=== PATIENT | male | born 1975 | race Caucasian/White ===

== ENCOUNTER 2021-05-28 09:59 | Emergency (ER) | payer SELFPAY ==
[2021-05-28 10:01] VITALS: BP 131/91; PULSE 81; RESP 18; TEMP 36.4; O2SAT 95; BMI 32.8
--- NOTE | 2021-05-28 10:18 | CT_ITS ---
EXAM DESCRIPTION: CLINICAL HISTORY: 46 years Male, painless jaundice COMPARISON: None TECHNIQUE: A CT scan of the abdomen and pelvis was performed with IV contrast contrast administration. Oral contrast was not administered. Coronal and sagittal reconstruction images were reviewed. This exam was performed according to our departmental dose-optimization program, which includes automated exposure control, adjustment of the mA and/or kV according to patient size and/or use of iterative reconstruction technique. FINDINGS: Subsegmental atelectasis is noted in both lung bases. The lung bases and heart base are otherwise normal. The liver is normal.The spleen is normal.The adrenal glands are normal.The head, body, and tail of the pancreas are normal. The right and left kidneys were examined and appear to be normal. Both ureters appear to be normal, and no obstructive uropathy is identified. The abdominal aortal is normal along its course and distribution. No paraortic lymphadenopathy is seen. No abdominal masses or lesions are seen. The CT scan of the pelvis was then reviewed. The common iliac vessels, external iliac vessels, and common femoral vessels are normal along their course and distribution No pelvis masses or lesions are seen. The appendix is normal. No pericecal inflammatory reaction is seen. Bone scanning windows of the lumbar spine and pelvis were reviewed in the coronal and sagittal planes and appear to be normal. CT/Abdomen/Pelvis W IV Cont ONLY IMPRESSION: Normal CT scan of the abdomen and pelvis. Electronically Signed: Gwyn Rosario DO at 11:41 EDT Tel , Service support ,
--- NOTE | 2021-05-28 10:19 | EX.ED.DYSGE1 ---
HPI History of Present Illness Chief Complaint: General Illness Detail of Chief Complaint: Yellow coloration today. 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 States he was doing well. He said today he noticed he was yellow in color per his family and he had dark yellow urine. Denies any nausea vomiting or diarrhea denies any abdominal pain. Denies any fever or chills. Prior similar symptoms: No Recent Illness/Hospitalization: No PFSH PFSH Allergy/AdvReac Type Severity Reaction Status Date / Time No Known Allergies Allergy Verified 05/28/21 10:00 Surgical History (Updated 05/28/21 @ 10:51 by Wily Yu) History of radical neck dissection History of tonsillectomy History of vasectomy Social History Smoking Status: Never smoker ROS ROS ED ROS Narrative Denies recent illness. Review of Systems ROS Unobtainable: Denies due to encephalopathy Constitutional Constitutional ED: Denies chills or fever(s) Eyes Eyes: Denies change in vision ENT ENT ED: Denies ear pain or sore throat Cardiovascular Cardiovascular: Denies chest pain Respiratory/Chest Respiratory/Chest: Denies cough or dyspnea Gastrointestinal Gastrointestinal: Denies abdominal pain, diarrhea, nausea or vomiting Genitourinary Genitourinary ED: Denies dysuria or hematuria Musculoskeletal Musculoskeletal: Denies myalgias Integumentary Denies rash Neurologic Neurologic: Denies headache(s) Psychiatric Psychiatric: Denies depression Endocrine Endocrinology: Denies polyuria Allergic/Immunologic Allergic/Immunologic ED: Denies urticaria EXAM Physical Exam Narrative Exam Narrative: Well-appearing middle-aged male no acute distress. Vital signs stable afebrile. He is obviously jaundiced. Both yellowish tint to his skin and scleral icterus. Otherwise exam is unremarkable. His abdomen is soft and nontender is no right upper quadrant abdominal pain. Moving all 4 extremities no edema. Lungs are clear. Heart regular rate and rhythm no murmur. Const Vital Signs: 05/28/21 10:01 05/28/21 10:51 Temperature 97.6 F L Temperature Source Temporal Pulse Rate 81 Respiratory Rate 18 Respiratory Effort Normal Respiratory Pattern Normal Blood Pressure 131/91 H Blood Pressure Mean 104 Pulse Ox 95 Oxygen Delivery Method Room Air HEENT Reports moist mucous membranes Negative for trauma or tenderness Eyes PERRL and EOMs intact bilaterally General Eye ED: Yes scleral icterus; Negative for pale conjunctiva Neck no lymphadenopathy, supple and no JVD General: Negative for tenderness Chest Wall inspection of chest normal and palpation of chest normal Resp normal respiratory effort and clear to auscultation bilaterally Cardio regular rate, regular rhythm, S1 normal heart sound, S2 normal heart sound and no murmurs GI normal to inspection, nondistended, normoactive bowel sounds, non-tender, non-distended and no masses Inspection: Negative for abdominal distention Auscultation: normoactive bowel sounds Palpation: soft; Negative for tender, guarding or rebound tenderness present Back/Spine no CVA tenderness General Back: Negative for CVA tenderness Cervical Spine: Negative for cervical spine tenderness Extremity normal to inspection General Extremety ED: Negative for edema, tenderness or other findings General Extremity: Negative for edema or other findings Neuro oriented x3 and CN's II-XII intact bilaterally Sensorium / Orientation: alert; Negative for orientation impaired, lethargic or stuporous Motor Exam: strength 5/5 throughout Psych mental status grossly normal Skin no rashes or lesions noted and no wounds General Skin Exam: jaundice MDM MDM MDM Narrative Medical decision making narrative: Middle-age male no acute distress. Vital signs stable afebrile. Has jaundice. No prior history. He had recent surgery for tonsillar cancer but that seemed to go well and really should not have any direct correlation with this jaundice. Labs and CAT scan are being obtained. Repeat exam patient doing well at 1 PM. I spoke to his ENT surgeon from [place]. I also spoke to our hospitalist here. There is really no reason at this time admit the patient in the hospital. I have his primary care physician's office on page that is Dr. Iglesias to ensure close follow-up this week. Hepatitis panel was pending. Lab Data Attestation: I reviewed the patient's lab results. Lab results narrative: CBC shows a white count of 6 hemoglobin is 16. Otherwise unremarkable. Electrolytes unremarkable gap of 5 normal creatinine. Liver enzymes total bilirubin 10.6 direct bilirubin 4.4. AST 196 and ALT 268. Alk phos is normal. Lipase is normal. CAT scan was read by the radiologist reviewed by me shows no acute abnormality. Labs: Laboratory Results - last 24 hr 05/28/21 05/28/21 10:20 10:20 WBC 6.3 RBC 5.62 Hgb 16.1 Hct 49.4 MCV 87.9 MCH 28.6 MCHC 32.6 RDW Std Deviation 38.5 RDW Coeff of Sarah Beth 11.9 Plt Count 323 MPV 8.6 Immature Gran % (Auto) 0.600 Neut % (Auto) 67.4 Lymph % (Auto) 21.3 [place] % (Auto) 9.4 Eos % (Auto) 0.8 Baso % (Auto) 0.5 Absolute Neuts (auto) 4.2 Absolute Lymphs (auto) 1.33 Nucleated RBC % 0 Sodium 137 Potassium 4.1 Chloride 103 Carbon Dioxide 29.0 Anion Gap 5 BUN 13 Creatinine 0.85 Estim Creat Clear Calc 110.93 Est GFR (MDRD) Af Amer 123 Est GFR (MDRD) Non-Af 102 BUN/Creatinine Ratio 15.2 Glucose 103 Calcium 9.2 Total Bilirubin 10.60 H Direct Bilirubin 4.44 H AST 196 H ALT 268 H Alkaline Phosphatase 55 Total Protein 7.2 Albumin 3.5 Globulin 3.7 Lipase 73 Radiography Diagnostic Testing: Radiology Impression Abdomen/Pelvis CT 05/28/21 10:18 IMPRESSION: Normal CT scan of the abdomen and pelvis. Electronically Signed: Gwyn Rosario DO at 11:41 EDT Tel , Service support , Discharge Plan Triage Chief Complaint: General Illness ED Provider: Patrick Bearden Dx/Rx/DC Orders Clinical Impression: Jaundice Primary Care Provider: Rodríguez Iglesias Referrals: Rodríguez Iglesias MD [Primary Care Provider] - As soon as possible Activity Restrictions/Additional Instructions: Call and follow-up your primary care physician's office this week. Avoid Tylenol and pain medications with Tylenol in them. We do not have a specific cause at this time for your jaundice. Hepatitis studies are pending and are send out. Your other labs and CAT scan were unremarkable. Return emergency department if you are feeling worse. Otherwise follow-up your primary care physician. I also spoke with your ear nose and throat surgeon from [place] he is aware. Disposition Disposition: Home, Self Care
[2021-05-28 10:34] LABS: Absolute Lymphocyte Count 1.33 X10^3/uL (0.83-4.51); Absolute Neutrophil Count 4.2 X10^3/uL (2.0-7.7); Basophil# 0.03 X10^3/uL; Basophil% 0.5 % (0-1); Eosinophil# 0.05 X10^3/uL; Eosinophils% 0.8 % (0-5); Hematocrit 49.4 % (40-54); Hemoglobin 16.1 g/dL (13.0-16.5); Lymphocyte # 1.33 X10^3/ul (0.83-4.51); Lymphocyte % 21.3 % (19-41); Mean Corp Hgb Conc 32.6 g/dL (32-36); Mean Corpuscular Hgb 28.6 pg (27.0-32.0); Mean Corpuscular Volume 87.9 fL (80-94); Mean Platelet Vol. 8.6 fl (6.2-12.0); Monocyte# 0.59 X10^3/uL; Monocyte% 9.4 % (0-10); NRBC Flagged by Analyzer 0 % (0-5); Neutrophil # 4.21 X10^3/uL (2.7-7.7); Neutrophil % 67.4 % (47-70); Platelet Count 323 K/mm3 (150-450); RBC Distribution Width CV 11.9 % (11.6-14.6); RBC Distribution Width SD 38.5 fl (35.1-43.9); Red Blood Count 5.62 M/mm3 (4.6-6.2); White Blood Count 6.3 K/mm3 (4.4-11.0)
[2021-05-28 10:49] LABS: AST(SGOT) 196 U/L (15-37); Alanine Aminotransfer ALT/SGPT 268 U/L (16-61); Albumin, Serum 3.5 g/dL (3.2-5.0); Alkaline Phosphatase 55 U/L (45-117); Anion Gap 5 (5-15); BUN 13 mg/dL (7-18); BUN/Creat Ratio 15.2 RATIO (10-20); Bilirubin, Direct 4.44 mg/dL (0.00-0.30); Calcium,Total 9.2 mg/dL (8.5-10.1); Chloride 103 mmol/L (98-107); Creatinine, Serum 0.85 mg/dL (0.70-1.30); EST Glomerular Filtration Rate 102 mL/min (>60); Est Glom Filt Rate - Afr Amer 123 mL/min (>60); Estimated Creatinine Clearance 110.93 ml/min; Globulin 3.7 g/dL (2.2-4.2); Glucose 103 mg/dL (74-106); Lipase 73 U/L (73-393); Potassium 4.1 mmol/L (3.5-5.1); Protein, Total 7.2 g/dL (6.4-8.2); Sodium Level 137 mmol/L (136-145)
[2021-05-28 13:31] VITALS: RESP 18
[2021-05-29 06:07] LABS: HEPATITIS B SURFACE AG Negative (Negative); Hepatitis A IgM Antibody Negative (Negative); Hepatitis B Core AB IgM Negative (Negative)
[2021-05-29 11:54] LABS: Hep C Antibodies <0.1 s/co ratio (0.0-0.9)
== END 2021-05-28 13:32 | disposition home or self-care (01) ==
PROVIDERS: Emergency Provider Emergency Medicine; PCP Family Medicine
DX: R17 Unspecified jaundice (principal); Z85.818 Personal history of malignant neoplasm of other sites of lip, oral cavity, and pharynx; Z98.52 Vasectomy status; Z98.890 Other specified postprocedural states
CPT/HCPCS: 74177; 80048; 80074; 80076; 83690; 85025; 99283; Q9967; A4216

== ENCOUNTER → 2021-07-23 10:49 | Outpatient (CLI) | payer SELFPAY ==
--- NOTE | 2021-07-23 11:05 | SP.MBSS_ITS ---
Modified Barium Swallow - Patient Information Study Date: 07/23/21 Study Time: 11:05 Direct Billable Minutes: 135 Total Minutes procedure & reportin Diagnosis: squamous cell carcinoma of the left tonsil Referring Physician: Galen Elizabeth Reason for Referral: Referred following clinical bedside swallowing evaluation completed as an outpatient 07/10/21 to further assess the extent to which oropharyngeal swallow function has been impacted by L tonsil cancer s/p tonsillectomy and neck dissection and to obtain baseline measure of swallow function. Dysphagia interv ention plan to be determined pending objective findings. 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 Pt is receiving adjuvant radiation therapy consisting of 5940 cGy delivered to the left tonsillar fossa and neck and 6600 cGy delivered to the left level 2 katharina region which was concerning for extranodal extension all in 33 fractions. Dentition: Natural Teeth Mental Status: WNL Respiratory Status: Oxygenating on Room Air - Penetration-Aspiration Scale Penetration-Aspiration Scale: OBJECTIVE ASSESSMENT OF SWALLOW FUNCTION (QUANTITATIVE ? PER TRIAL): PENETRATION / ASPIRATION SCALE ([place]): 1 = does not enter airway 2 = enters airway/above vocal folds/ejected 3 = enters airway/above vocal folds/not ejected 4 = enters airway/contacts vocal folds/ejected 5 = enters airway/contacts vocal folds/not ejected 6 = enters airway/below vocal folds/ejected 7 = enters airway/below vocal folds/not ejected despite effort 8 = enters airway/below vocal folds/no effort VIDEOFLOROSCOPIC SCALE SCORE ([place]): Grade I = aspiration of material that has penetrated into the laryngeal vestibule, intact cough reflex Grade II = aspiration < 10 % of the bolus, intact cough reflex Grade III = aspiration of < 10 % of the bolus, reduced cough reflex or aspiration of > 10 % of the bolus, intact cough reflex Grade IV = aspiration of > 10 % of the bolus, reduced cough reflex - Penetration-Aspiration Scale Score Thin Liquid via teaspoon Result: 1= does not enter airway Thin Liquid via teaspoon Trial 2 Result: 1= does not enter airway Thin Liquid via single sip from cup Result: 1= does not enter airway Thin Liquid via sequential sips from cup Result: 3= enters airways/above vocal folds/not ejected Thin Liquid via single sip from straw Result: 1= does not enter airway [place] Thick Liquid via small single sip from cup Result: 1= does not enter airway [place] Thick Liquid via small single sip from cup Result: 1= does not enter airway Pudding Result: 1= does not enter airway Pudding + Esophageal Screen Result: 1= does not enter airway Cookie Result: 1= does not enter airway Thin Liquid via small single sip from cup Result: 1= does not enter airway - Oral Phase Labial Seal: No Labial Escape Tongue Control During Bolus Hold: Cohesive bolus between tongue to palatal seal Bolus Preparation/Mastication: Timely and efficient chewing and mashing Bolus Transport/Lingual Motion: Slowed tongue motion Oral Residue: Residue collection on oral structures - Pharyngeal Phase Initiation of Pharyngeal Swallow: Bolus head in valleculae Soft Palate Elevation: No bolus between soft palate and pharyngeal wall Laryngeal Elevation: Partial superior movement thyroid cart/partial apprx aryt- epig petiole Anterior Hyoid Excursion: Partial anterior movement Epiglottic Movement: Partial inversion Laryngeal Vestibule Closure at Height of Swallow: Incomplete; narrow column of air/contrast in laryngeal vestibule Pharyngeal Stripping Wave: Present - diminished Pharyngoesophageal Segment Opening: Parital distension and partial duration; parital obstruction of flow Tongue Base Retraction: Narrow column of contrast between tongue base & post. pharyngeal wall Pharyngeal Residue: Collection of residue within or on pharyngeal structures - Esophageal Phase Esophageal Clearance: Esophageal retention w/ retrograde flow through pharyngoesophageal seg - Diagnosis/Impression Diagnosis: pharyngeal dysphagia (R13.13) Impression: The oral phase is marked by: * residue retention on the oral tongue post deglutition * double swallow/liquid wash effective to reduce residue The pharyngeal phase is marked by: * reduced laryngeal elevation and reduced anterior hyoid excursion resulting in incomplete arytenoid to epiglottic petiole contact resulting in insufficient laryngeal vestibule closure w/ laryngeal vestibule penetration of thin liquids * insufficient epiglottic inversion attributed to reduced hyolaryngeal excursion resulting in contrast retention w/in the valleculae * poor pharyngeal motility attributed to reduced tongue base retraction and reduced posterior pharyngeal stripping wave action resulting in pharyngeal retention coating the pharyngeal tongue base and valleculae * reduced pharyngoesophageal segment opening resulting in pharyngeal retention within the pyriforms The esophageal phase is marked by: * 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 chew thoroughly * small sips ? one sip at a time * effortful swallow w/ each bite/sip * swallow (hard) 2x for each bite/sip * alternate bites of food with sips of liquid - use liquid wash to clear residue * sit upright w/ hip flexion at 90? for all PO intake * remain sitting upright for 30-60 minutes after intake (GERD precautions) Referrals: * consider GI referral for management of cricopharyngeal bar if s/s esophageal dyspahgia/impaired motility present or worsen * consider referral to Registered Dietitian d/t weight loss, consideration for alternative means of nutrition/hydration of unable to maintain sufficient PO intake t/o remainder of radiation treatment Need for additional Speech Therapy services: Yes Patient requires intensive dysphagia intervention targeting: * diet texture management * compensatory swallowing strategies * GERD precautions * oropharyngeal strengthening exercise program * tongue base retraction * anterior hyoid excursion * epiglottic inversion * pharyngeal contraction * PES distention Education Completed: Images were reviewed w/ the patient following MBS conclusion. Extended time spent providing education re: anatomy/physiology of swallow function and of deficits identified secondary to cancer treatment. Results, recommendation and plan of care going forward were discussed with the Patient, who verbalized understanding and agreement with all recommendations and education provided. - Status Active ST Patient: Active - Contact Information [facility] Speech Therapy:: Veda Daley M.A., CCC-BIOLOGICAL INSPECTOR [address] [place] [address] x [phone] 07/24/21 15:38
== END ==
PROVIDERS: PCP Family Medicine; Referring Provider Nurse Practitioner Family; Visit Provider Nurse Practitioner Family
DX: C09.9 Malignant neoplasm of tonsil, unspecified (principal)
CPT/HCPCS: 74230; 92611

== ENCOUNTER 2021-11-01 12:55 | Outpatient (CLI) | payer SELFPAY ==
--- NOTE | 2021-11-01 13:56 | SP.MBSS_ITS ---
Modified Barium Swallow - Patient Information Study Date: 11/01/21 Study Time: 13:00 Direct Billable Minutes: 100 Total Minutes procedure & reportin Diagnosis: SCC of left tonsil Referring Physician: Galen Elizabeth Reason for Referral: Pt. 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 Dysphagia intervention to be determined based on current findings. 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 Pt is receiving adjuvant radiation therapy consisting of 5940 cGy delivered to the left tonsillar fossa and neck and 6600 cGy delivered to the left level 2 katharina region which was concerning for extranodal extension all in 33 fractions. Pt. completed a baseline MBSs on 07/23/21 of swallow function with Regular easy to chew diet with thin liquids recommended. Current Diet Ordered: Regular with thin liquids Dentition: WNL, Natural Teeth Mental Status: WNL Comment: Pt. reports he is able to tolerate his current diet. He states sandwiches and bread are hard to chew and he eats sandwiches and hambergers with only one slice of bread. Pt. also reports he can feel the food building up in his throat resulting in him coughing. He goes slow when he eats but doesn't feel he needs to swallow as many times in between bites. Respiratory Status: Oxygenating on Room Air - Penetration-Aspiration Scale Penetration-Aspiration Scale: OBJECTIVE ASSESSMENT OF SWALLOW FUNCTION (QUANTITATIVE ? PER TRIAL): PENETRATION / ASPIRATION SCALE ([place]): 1 = does not enter airway 2 = enters airway/above vocal folds/ejected 3 = enters airway/above vocal folds/not ejected 4 = enters airway/contacts vocal folds/ejected 5 = enters airway/contacts vocal folds/not ejected 6 = enters airway/below vocal folds/ejected 7 = enters airway/below vocal folds/not ejected despite effort 8 = enters airway/below vocal folds/no effort - Penetration-Aspiration Scale Score Thin Liquid via teaspoon Result: 1= does not enter airway Thin Liquid via teaspoon Trial 2 Result: 1= does not enter airway Thin Liquid via small single sip from cup Result: 1= does not enter airway Thin Liquid via small single sip from cup Trial 2 Result: 2= enter airway/above vocal folds/ejected Thin Liquid via sequential sips from cup Result: 2= enter airway/above vocal folds/ejected - penetration on second swallow Thin Liquid via single sip from straw Result: 2= enter airway/above vocal folds/ejected Thin Liquid via sequential sips from straw Result: 3= enters airways/above vocal folds/not ejected [place] Thick Liquid via small single sip from cup Result: 1= does not enter airway [place] Thick Liquid via small single sip from cup Result: 1= does not enter airway Pudding via teaspoon Result: 2= enter airway/above vocal folds/ejected - penetration suspected d/t pharyngeal residuals Pudding via teaspoon Other Result: 1= does not enter airway - esophageal screen Cookie via teaspoon Result: 1= does not enter airway Thin Liquid via small single sip from cup Chin tuck Result: 4= enters airway/contacts vocal folds/ejected Thin Liquid via small single sip from cup Effortful swallow Result: 1= does not enter airway - Oral Phase Labial Seal: No Labial Escape Tongue Control During Bolus Hold: Cohesive bolus between tongue to palatal seal Bolus Preparation/Mastication: Slow prolonged chewing/mashing with complete recollection Bolus Transport/Lingual Motion: Delayed initiation of tongue motion Oral Residue: Residue collection on oral structures - Pharyngeal Phase Initiation of Pharyngeal Swallow: Bolus head in valleculae - increased as study progressed Soft Palate Elevation: No bolus between soft palate and pharyngeal wall Laryngeal Elevation: Comp. Superior move thyroid cart w/comp. apprx arytenoid cart-epig pet Anterior Hyoid Excursion: Partial anterior movement Epiglottic Movement: Complete inversion Laryngeal Vestibule Closure at Height of Swallow: Complete; no air/contrast in laryngeal vestibule Pharyngeal Stripping Wave: Present - diminished Pharyngoesophageal Segment Opening: Parital distension and partial duration; parital obstruction of flow Tongue Base Retraction: Narrow column of contrast between tongue base & post. pharyngeal wall Pharyngeal Residue: Collection of residue within or on pharyngeal structures - Esophageal Phase Esophageal Clearance: Complete clearance - Treatment Strategies Effects of treatment strategies attemped:: Pt. presented with independent re-swallow x 2-3 with each swallow. Re-swallow decreased pharyngeal residue, but did not elimitate residue resulting in increased risk of penetration/aspiration between swallows. Pt. was prompted to trial chin tuck with thin liquids via thin cup sips resulting in increase in penetration of bolus. Pt. was prompted for effortful swallow with thin cup sip with minimal assistance with decreasing pharyngeal residue following swallow. - Diagnosis/Impression Diagnosis: Mild-moderate oralphayrngeal dysphagia R13.12 Impression: Patient presents with oral phase dysphagia marked by decreased anterior to posterior transfer of bolus resulting in oral residue. Patient presents with pharyngeal phase dysphagia marked by decreased tongue base retraction resulting in premature posterior spillage of the bolus to the valleculae. The pharyngeal phase is also marked by decreased anterior hyoid movement and decrease posterior pharyngeal constriction resulting in bolus residues in the valleculae and pyriform sinuses. These pharyngeal residuals are placing patient at increased risk of penetration and possible aspiration during and after swallow. Penetration was observed with thin liquids and pudding. Penetration with pudding is suspected to be due to penetration of pharyngeal residue between swallows. - Recommendations Diet: Regular Textures - Easy to chew, Thin Liquids Compensatory Strategies: Small Bites, Small Sips, Slow Rate, Multiple Swallows, Alternate bites/solids and sips/liquids, Sitting upright, Remain sitting upright for 30 minutes after PO intake Supervision: Distant Supervision Recommend Repeat Modified Barium Swallow: TBD - to determine progression of radation fibrosis syndrome when recommended by Outpt. INTEGRATION SOFTWARE ENGINEER Need for Skilled Speech Therapy Services: Yes - Continue with Outpt. ST Comment: ST to address oral and pharyngeal strengthening exercises, stretches, myofascial release and training in safe swallow strategies Education Completed: 1. Described result of evaluation., 2. Pt understands evaluation & agrees with goals and treatment plan., 7. Pt requires further education on strategies & risks. Comment: Images were reviewed with patient and patient was educated on recommended swallow strategies, diet and need for continued ST services to address oropharyngeal exercises. Pt. verbalized understanding - Status Active ST Patient: Not Active - Contact Information [facility] Speech Therapy:: [place] [address] [place], [place] [id number] Stacie Bui M.A. CCC-INTEGRATION SOFTWARE ENGINEER [email or web address] 11/01/21 14:18
== END 2021-11-01 23:59 | disposition short-term general hospital (02) ==
PROVIDERS: PCP Family Medicine; Referring Provider Student in an Organized Health Care Education/Training Program; Visit Provider Student in an Organized Health Care Education/Training Program
DX: C09.9 Malignant neoplasm of tonsil, unspecified (principal)
CPT/HCPCS: 74230; 92611

== ENCOUNTER 2021-11-22 07:13 | Outpatient (CLI) | payer SELFPAY ==
--- NOTE | 2021-11-22 07:20 | CT_ITS ---
STUDY: CT CHEST WITH CONTRAST REASON FOR EXAM: Male, 46 years old. Follow-up for treated squamous cell carcinoma of the head and neck. RADIATION DOSAGE (If Supplied By Facility): CTDIvol = ( 19.53 ) mGy, DLP = ( 1314.35 ) mGycm TECHNIQUE: Transaxial imaging was performed following intravenous administration of IV 100mL Isovue-370. Multiplanar coronal and sagittal images were reformatted. Individualized dose optimization techniques were used for this CT. COMPARISON: None. FINDINGS: The lungs are normal. There is no demonstrated pleural abnormality. Normal heart and pericardium. Normal mediastinum. Normal hilar regions. Normal enhanced pulmonary arteries. Normal aorta arch and descending thoracic aorta. Normal osseous structures. There is no demonstrated abnormality of the visualized upper abdomen. CT/Chest WITH Contrast IMPRESSION: Normal enhanced CT Chest examination. Electronically Signed: Dave Buckner MD at 8:32 EST ,
--- NOTE | 2021-11-22 07:20 | CT_ITS ---
STUDY: CT SOFT TISSUE NECK WITH CONTRAST REASON FOR EXAM: Male, 46 years old. Treated SCC H N RADIATION DOSAGE (If Supplied By Facility): CTDIvol = ( 19.53 ) mGy, DLP = ( 1314.35 ) mGycm TECHNIQUE: The patient was scanned in a multi-detector CT scanner. High resolution transaxial imaging was performed following intravenous administration of IV 100mL Isovue-370. Sagittal and coronal images were reconstructed. Individualized dose optimization techniques were used for this CT. COMPARISON: None. FINDINGS: Normal bilateral parotid glands. Normal bilateral laborer yard spaces. Normal bilateral parapharyngeal spaces. Normal bilateral carotid spaces. Normal bilateral sublingual and submandibular glands and spaces. Normal visualized nasopharynx. Normal retropharyngeal space. Normal perivertebral space. Stable soft tissue asymmetry of the left piriform sinus and hypopharyngeal region on the left side. Surgical clips are seen in the left cervical region deep to the anterior aspect of the left external cleidomastoid muscle. Persistent soft tissue density with obliteration of the fat is seen.. The visualized cervical lymph nodes (levels I-) are within normal size limits, and maintain normal morphology. There is no demonstrated solid or cystic mass lesion. There is no abnormal contrast enhancement. Normal epiglottis, bilateral vallecula and hypopharynx. The pre-epiglottic and paraglottic adipose spaces are normal. Normal visualized bilateral piriform sinuses, aryepiglottic folds, vocal cords, and arytenoid-cricoid articulations. Normal subglottic trachea. Normal bilateral lobes of the thyroid gland. Normal visualized pulmonary apices. Normal visualized paranasal sinuses. Normal visualized cervical spine. CT/Soft Tissue Neck WITH Contrast IMPRESSION: Stable asymmetry of prominence of the soft tissues in the region of the left hypopharynx in the left piriform sinus. Postsurgical changes are seen with surgical clips. Persistent soft tissue density and possible small lymph nodes at the operative site with obliteration of the fat seen surrounding the left carotid sheath. Electronically Signed: Dave Buckner MD at 8:51 EST ,
== END 2021-11-22 23:59 | disposition short-term general hospital (02) ==
PROVIDERS: PCP Family Medicine; Referring Provider Student in an Organized Health Care Education/Training Program; Visit Provider Student in an Organized Health Care Education/Training Program
DX: C09.9 Malignant neoplasm of tonsil, unspecified (principal)
CPT/HCPCS: 70491; 71260; Q9967

== ENCOUNTER 2021-12-31 11:30 | Outpatient (RCR) | payer SELFPAY ==
--- NOTE | 2021-07-23 13:48 | HP.SP.AD_ITS ---
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 Pt is receiving adjuvant radiation therapy consisting of 5940 cGy delivered to the left tonsillar fossa and neck and 6600 cGy delivered to the left level 2 katharina region which was concerning for extranodal extension all in 33 fractions. Smoking Status: Never smoker - Pain Is pain an issue with your current prescribed condition?: Yes - Personal Right Hearing Abillity: Normal Left Hearing Abillity: Normal Visual Assistive Devices: None Patients Living Arrangements: With Family Patient Allergies - Allergies Allergies No Known Allergies Allergy (Verified 07/17/21 13:18) Subjective Dysphagia - Symptoms Reported Symptoms/Problems with: Pain on Swallowing, Food gets stuck Other: required extra effort/liquid wash w/ solid textures; hypoguesia - Current Diet Solids Current Diet: Soft Other: primarily consuming soup, oatmeal and soft noodles (ramen/lo mein) - Current Diet Liquids Current Liquids: Thin Objective Dysphagia - Administered by Administered by: Self - Thin Liquids Administred via: Cup, Straw Laryngeal Elevation: Impaired Comments: Adequate labial seal w/out bolus loss. Tolerated single sips via cup and straw & sequential swallows via cup w/out overt s/s aspiration nor suspected silent aspiration. Suspect reduced laryngeal elevation - objective assessment under fluoroscopy recommended. - Pureed Laryngeal Elevation: Impaired Oral Holding: No Stasis: WNL Patient Report: requires extra effort to coordinate swallow Comments: Large bolus size noted. Complete oral clearance. Suspect reduced laryngeal elevation - objective assessment under fluoroscopy recommended. Tolerated w/out overt s/s aspiration nor suspected silent aspiration. - Regular Laryngeal Elevation: Impaired Stasis: residue lining oral structures, able to clear w/ liquid wash Patient Report: hypoguesia - reports only being able to somewhat taste steel cut oats w/ banana and brown sugar Comments: Reduced jaw opening - 27mm opening measured. Large bite size noted. Odynophagia w/ deglutition of solids. Required effortful swallow w/ liquid wash to clear. No s/s aspiration. Suspect reduced laryngeal elevation/impaired pharyngeal clearance - objective assessment under fluoroscopy recommended. - Results Swallowing Within Normal Limits: No Swallowing Diagnosis: Oropharyngeal Phase Dysphagia Additional: odynophagia d/t mucositis, suspected pharyngeal dysphagia - MBS recommended Severity: Mild Dysphagia Assessment - Diet Texture Recommendations Solids Other: Soft Liquids: Thin - Safety Saftey Precautions/Swallowing Recommendations (Check all that Apply): Small Sips & Bites when Eating, Alternate Liquids & Solids FOIS - Functional Oral Intake Scale Total oral diet with multiple consistencies, but requiring special preparation or compensations: Level 5 SP Oncology PSS-HN - PSS-HN Test Normalcy of Diet: Soft chewable foods Scale Result:: 50 Public Eating: No restrictions of place, food or companions-eats out any opportunity Public eating scale: 100 Understandability of Speech: Always understandable Understandability of Speech Scale: 100 Other Impressions - Comments Cranial Nerve Examination -: TRIGEMINAL NERVE (V) ? WNL. FACIAL NERVE (VII) ? impaired motor; L labial asymmetry, lower lip w/ retraction/frown. VAGUS NERVE (X) ? no clinical abnormalities observed. HYPOGLOSSAL NERVE (XII) ? impaired; tremor/fasciculation at rest, reduced symmetry of movement w/ lateralization R; lingual weakness against resistance. Other oral motor observations: moist oral mucosa; mucositis present, visible sores to L gums/lingual surface Plan - Plan Plan: Will recommend the patient for skilled outpatient dysphagia therapy to address oropharyngeal dysphagia related to squamous cell carcinoma of the L tonsil and to provide the patient further education re: proactive oropharyngeal exercise program, diet texture recommendations, aspiration precautions, and compensatory strategies to decrease risk for aspiration. Additionally, will provide ongoing assessment of diet tolerance during and post radiation treatment. Without skilled ST services, the patient is at risk for aspiration, weight loss, and malnutrition. - Recommendations MBS: Yes Treatment Warranted: Yes - Frequency Frequency: Every Other Week - Prognosis Prognosis: Good - Goals that are Established: Determination:: Goals will be added/modified as deemed necessary and appropriate. Therapy will be discontinued when results of re-evaluation indicate therapy is no longer needed or lack of progress has been documented. - Goal #1-5 Goal #1: The patient will consume least restrictive means of PO nutrition/hydration without overt s/s of aspiration with 90% accuracy with minimal verbal cues for use of compensatory strategies to decrease risk for aspiration. Goal #2: The patient will complete an oropharyngeal exercise program during and post radiation treatment 3-5X daily independently to improve and maintain strength, ROM, and coordination of swallowing mechanism. Goal #3: The patient will complete jaw strength, coordination, and ROM exercises during and post radiation treatment 3-5X daily independently to improve and maintain mastication abilities. Baseline jaw opening - 27mm 07/10/21. Goal #4: The patient will participate in MBS study to objectively assess swallow function and provide recommendations for safest, least restrictive diet and compensatory strategies to reduce risk for aspiration. Education - Patient has Indicated that the Following Identified Educational Needs: None The Patient has indicated that they have no educational or learning abilities that may effect their care.: Yes - Patient Instruction Patient Education: Diagnosis, Treatment Plan, Goals, Safety Precautions, Home Exercise Program Other Education: Education provided regarding the impact of radiation treatment on swallow function during and post treatment, including effects such as mucositis, xerostomia, lymphedema, hypoguesia, dysgeusia, radiation fibrosis, trismus, dysphagia, and disuse atrophy which may result in restricted range of motion and weakness of swallowing mechanism. Discussed how impaired swallow function d/t treatment can result in an increased risk for aspiration, aspiration related illnesses, weight loss, and malnutrition. Reinforced the importance of ongoing dysphagia intervention to monitor and address dysphagia both during and post radiation treatment to maintain optimal swallow function w/ a focus on continued education and implementation of a proactive swallowing exercise program. Provided the patient a handout and demonstration of proactive oropharyngeal exercise program, as well as jaw ROM exercises. The patient provided return demonstration with all exercises with minimal verbal cues and demonstration. The patient would benefit from continued training to assess progress and grade complexity of swallow exercise program to ensure proper execution and maximal benefit from prescribed exercise program. Discussed rationale for completion of MBS as soon as possible. Person Taught: Patient Teaching Method: Discussion, Demonstration, Handout Response to teaching: Return demonstration, Verbalize understanding
== END 2021-12-31 19:00 | disposition home or self-care (01) ==
LOC: SP 11:30
PROVIDERS: PCP Family Medicine; Referring Provider Student in an Organized Health Care Education/Training Program; Visit Provider Student in an Organized Health Care Education/Training Program
DX: C76.52 Malignant neoplasm of left lower limb (principal)
CPT/HCPCS: 92507; 92526

== ENCOUNTER 2022-06-13 11:30 | Outpatient (RCR) | payer SELFPAY ==
--- NOTE | 2022-10-10 16:12 | HP.SP.DC ---
ST Discharge Summary - Discharged: Discharge: Shun Lay is a 47-year-old male who was referred for OP ST to manage dysphagia secondary to SCC of the L tonsil s/p L neck dissection and bilateral tonsillectomy 05/24/2021. 05/28/2021 - 08/07/2021 he completed adjuvant radiation therapy. Pt has followed ST services during and following radiation treatment to monitor oropharyngeal dysphagia. 09/02/2022 he participated in MBSS that recommended Regular Textures, Thin Liquids with use of strategies to decrease risk for aspiration. Need for Skilled Speech Therapy Services: No - Pt to continue with home oropharyngeal exercise program 3-5X daily from OP speech therapy. Would recommend scheduling with ELECTROLYSIS NEEDLE OPERATOR if pt is having increased difficulty with intake or poor adherence to home exercise program. Pt verbalized understanding. Will plan for repeat MBS study in 6-12 months to monitor swallow function as the patient is at risk for worsening dysphagia and aspiration risk s/p radiation treatment.
== END 2022-06-13 19:00 | disposition home or self-care (01) ==
LOC: SP 11:30
PROVIDERS: PCP Family Medicine; Referring Provider Student in an Organized Health Care Education/Training Program; Visit Provider Student in an Organized Health Care Education/Training Program
DX: C09.9 Malignant neoplasm of tonsil, unspecified (principal)
CPT/HCPCS: 92526

== ENCOUNTER → 2022-09-02 | Outpatient (CLI) | payer SELFPAY ==
--- NOTE | 2022-09-02 13:48 | ST.MBS ---
Modified Barium Swallow - Patient Information Study Date: 09/02/22 Study Time: 13:00 Direct Billable Minutes: 75 Total Minutes procedure & reportin Diagnosis: Squamous cell carcinoma of L tonsil (C09.9) Referring Physician: Galen Elizabeth Reason for Referral: Objectively assess swallow function, risk for aspiration, and determine recommendations for least restrictive diet textures and compensatory strategies to improve safety of swallow s/p radiation treatment of L tonsil SCC. 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 05/28/2021 - 08/07/2021 he completed adjuvant radiation therapy. Pt has followed ST services during and following radiation treatment to monitor oropharyngeal dysphagia. He is at risk for worsening dysphagia and aspiration risk s/p radiation treatment. Most recent MBSS 11/01/2021 revealed mild-moderate oropharyngeal phase dysphagia and recommended Regular Textures - Easy to chew, Thin Liquids with the following compensatory strategies and supervision needs: Small Bites, Small Sips, Slow Rate, Multiple Swallows, Alternate bites/solids and sips/liquids, Sitting upright, Remain sitting upright for 30 minutes after PO intake, Distant Supervision. Current Diet Ordered: Regular textures / Thin liquids Dentition: WNL Mental Status: WNL Respiratory Status: Oxygenating on Room Air - Penetration-Aspiration Scale Penetration-Aspiration Scale: OBJECTIVE ASSESSMENT OF SWALLOW FUNCTION (QUANTITATIVE ? PER TRIAL): PENETRATION / ASPIRATION SCALE ([place]): 1 = does not enter airway 2 = enters airway/above vocal folds/ejected 3 = enters airway/above vocal folds/not ejected 4 = enters airway/contacts vocal folds/ejected 5 = enters airway/contacts vocal folds/not ejected 6 = enters airway/below vocal folds/ejected 7 = enters airway/below vocal folds/not ejected despite effort 8 = enters airway/below vocal folds/no effort VIDEOFLOROSCOPIC SCALE SCORE ([place]): Grade I = aspiration of material that has penetrated into the laryngeal vestibule, intact cough reflex Grade II = aspiration < 10 % of the bolus, intact cough reflex Grade III = aspiration of < 10 % of the bolus, reduced cough reflex or aspiration of > 10 % of the bolus, intact cough reflex Grade IV = aspiration of > 10 % of the bolus, reduced cough reflex - Penetration-Aspiration Scale Score Thin Liquid via teaspoon Result: 1= does not enter airway Thin Liquid via teaspoon Trial 2 Result: 1= does not enter airway Thin Liquid via small single sip from cup Double swallow Result: 1= does not enter airway Thin Liquid via sequential sips from cup Double swallow Result: 1= does not enter airway [place] Thick Liquid via small single sip from cup Result: 1= does not enter airway Honey Thick Liquid via small single sip from cup Result: 1= does not enter airway - independent double swallow Pudding via teaspoon with esophageal screen Result: 1= does not enter airway 1/2 Cookie Result: 1= does not enter airway Thin Liquid via single sip from straw Result: 1= does not enter airway - Oral Phase Labial Seal: No Labial Escape Tongue Control During Bolus Hold: Posterior escape of less than half of bolus - to the vallecula Bolus Preparation/Mastication: Timely and efficient chewing and mashing Bolus Transport/Lingual Motion: Brisk tongue motion Oral Residue: Trace residue lining oral structures - Pharyngeal Phase Initiation of Pharyngeal Swallow: Bolus head in valleculae Soft Palate Elevation: No bolus between soft palate and pharyngeal wall Laryngeal Elevation: Comp. Superior move thyroid cart w/comp. apprx arytenoid cart-epig pet Anterior Hyoid Excursion: Partial anterior movement Epiglottic Movement: Partial inversion Laryngeal Vestibule Closure at Height of Swallow: Complete; no air/contrast in laryngeal vestibule Pharyngeal Stripping Wave: Present - diminished Pharyngoesophageal Segment Opening: Complete distension and complete duration; no obstruction of flow Tongue Base Retraction: Wide column of contrast between tongue base & post. pharyngeal wall Pharyngeal Residue: Collection of residue within or on pharyngeal structures - Esophageal Phase Esophageal Clearance: Complete clearance - Diagnosis/Impression Diagnosis: Mild pharyngeal phase dysphagia (R13.12) Impression: The oral phase appears grossly WNL. Min posterior loss of bolus head to the vallecula. Timely mastication. Trace oral residue after the swallow. The pharyngeal phase is primarily marked by... -Decreased tongue base retraction, pharyngeal stripping wave, and duration of UES opening resulting in moderate pharyngeal residues after the swallow. He benefits from use of double swallow to clear pharyngeal residues. -Decreased anterior hyoid excursion; however, the patient demonstrated excellent closure of the laryngeal vestibule after the swallow. No aspiration or laryngeal penetration observed during the study. Small CP bar observed at the level of C5; however, it did not appear to obstruct bolus clearance through the UES. - Recommendations Diet: Regular Textures, Thin Liquids Compensatory Strategies: Small Bites, Small Sips, Slow Rate, Multiple Swallows - intermittent double swallow, Alternate bites/solids and sips/liquids, Sitting upright Recommend Repeat Modified Barium Swallow: Yes Comment: Repeat MBS study in 6-12 months to monitor swallow function as the patient is at risk for worsening dysphagia and aspiration risk s/p radiation treatment. Need for Skilled Speech Therapy Services: No Comment: Pt to continue with home oropharyngeal exercise program 3-5X daily from OP speech therapy. Would recommend scheduling with STACKER OPERATOR if pt is having increased difficulty with intake or poor adherence to home exercise program. Pt verbalized understanding. Education Completed: 1. Described result of evaluation., 5. Patient demonstrates recommended strategies. - Status Active ST Patient: Active - Contact Information [facility] Speech Therapy:: Olivia Jacobs M.A. [facility]-STACKER OPERATOR Speech-Language Pathologist [facility] [address] [place] [address] [email or web address] [phone] 09/02/22 13:56
== END | disposition home or self-care (01) ==
PROVIDERS: PCP Family Medicine; Referring Provider Student in an Organized Health Care Education/Training Program; Visit Provider Student in an Organized Health Care Education/Training Program
DX: C09.9 Malignant neoplasm of tonsil, unspecified (principal)
CPT/HCPCS: 74230; 92611

== ENCOUNTER → 2024-09-07 | Outpatient (CLI) | payer SELFPAY | END | disposition home or self-care (01) | PROVIDERS: PCP Family Medicine; Referring Provider Student in an Organized Health Care Education/Training Program; Visit Provider Student in an Organized Health Care Education/Training Program | DX: C09.9 Malignant neoplasm of tonsil, unspecified (principal) | CPT/HCPCS: 74230; 92611 ==